=== PATIENT | female | born 1940 | race Caucasian/White ===

== ENCOUNTER 2017-08-02 11:38 | Emergency (ER) | payer MEDICARE, MEDICAID, SELFPAY ==
[2017-08-02 11:40] VITALS: BP 173/79; PULSE 65; RESP 16; TEMP 37; O2SAT 98; BMI 23.0
--- NOTE | 2017-08-02 13:01 | CT_ITS ---
CT head/brain wo con HISTORY: ITS.REASON: DIZZY AND HEADACHE ORDERING PHYSICIAN: Giorgio Cook MD PATIENT AGE: 77 years COMPARISON: None TECHNIQUE: Axial images obtained without contrast. Brain and bone windows reviewed. FINDINGS: No midline shift, mass effect, intracranial hemorrhage, hydrocephalus, or extra-axial fluid collection is evident. The calvarium has an unremarkable appearance. No mastoid effusion. No sinus air-fluid levels.. IMPRESSION: Negative CT head without contrast. No acute finding.
--- NOTE | 2017-08-02 14:35 | HMH.EDHA ---
ED Disposition Clinical Impression: Headache Qualifiers: Headache type: tension-type Headache chronicity pattern: chronic headache Intractability: not intractable Qualified Code(s): G44.229 - Chronic tension-type headache, not intractable Disposition: Home, Self-Care Condition on Discharge: Good Instructions: DI for Chronic Pain -- Adult, DI for Headache Referrals: Yaa Gonzalez [Primary Care Provider] - Time of Disposition: 15:28 - Critical Care Critical Care Time: No Attestation: On 08/02/17, the high probability of a clinically significant, sudden or life threatening deterioration of the following system(s) required my full and direct attention, intervention and personal management. The time I documented below is in addition to time spent performing reported procedures but includes the following listed in this critical care notation. Medical Decision Making - Medical Records Medical records reviewed: Yes: I reviewed the patient's medical records. Vital Signs: 08/02/17 11:40 08/02/17 14:40 08/02/17 15:49 Temperature 98.6 F 98.0 F Temperature Source Oral Oral Pulse Rate 56 L Pulse Rate [Right Brachial] 65 52 L Respiratory Rate 16 12 20 Blood Pressure 163/75 Blood Pressure [Right Arm] 173/79 141/72 Blood Pressure Mean [Right Arm] 110 95 Blood Pressure Source Automatic Cuff Blood Pressure Source [Right Arm] Automatic Cuff Automatic Cuff Blood Pressure Position Sitting Blood Pressure Position [Right Arm] Sitting Sitting 02 Sat by Pulse Oximetry 98 99 Oxygen Delivery Method Room Air Room Air Room Air Orders (Tests/Meds): ED MEDICATIONS Discontinued Medications Generic Name Dose Route Start Last Admin Trade Name Freq PRN Reason Stop Dose Admin Clonidine HCl 0.1 mg 08/02/17 14:36 Clonidine 0.1mg Tablet PO 08/02/17 14:37 ONCE ONE Ketorolac Tromethamine 60 mg 08/02/17 14:35 08/02/17 14:47 Toradol 30mg/Ml Vial IM 08/02/17 14:36 60 mg ONCE ONE Administration Ondansetron HCl 4 mg 08/02/17 14:35 08/02/17 14:46 Zofran 4mg/2ml Vial IM 08/02/17 14:36 4 mg ONCE ONE Administration Trimethoprim/Sulfamethoxazole 1 each 08/02/17 14:36 08/02/17 14:57 Bactrim Ds Tablet PO 08/02/17 14:37 Not Given ONCE ONE Protocol - CT Data CT Scan: Head Time Received: 15:[address] Reviewed: Yes: I have reviewed the patient's CT results Preliminary Findings: Normal/NAD - Ezio Inquiry Pt receiving controlled substance: No - Reevaluation(s) Time: 15:10 Reevaluation #1: Patient appears medically stable, in no acute distress at this time. Appears patient has had off-and-on headaches for a lifetime, however she has never reported such complained to her family physician. Instructed patient to follow-up with her family physician in the 2-3 days, and possibly obtain an MRI of the brain. Headache HPI - General Chief Complaint: Headache Stated Complaint: headache for 5 days and mormon pain Mode of Arrival: Ambulatory Limitations: No Limitations - History of Present Illness MD Complaint: headache Onset (ago): week(s) (1) Onset description: gradual Location: frontal Severity: mild Severity scale (1-10): 2 Quality: aching Relieving factors: rest - Related Data Allergies Allergy/AdvReac Type Severity Reaction Status Date / Time No Known Allergies Allergy Verified 08/02/17 12:14 [facility] History I have reviewed the patient's past medical history: Yes ROS Obtained: Yes All systems reviewed & no additional complaints - Neurologic Neurologic: Reports as per HPI, Reports headache(s) Physical Exam - General General appearance: alert, in no apparent distress - Head Head exam: atraumatic, normocephalic, normal inspection - Eye Eye exam: Present: normal appearance, PERRL, EOMI - ENT ENT exam: Present: normal exam, normal oropharynx, mucous membranes moist, TM's normal bilaterally, normal external ear exam - Neck Neck exam:
[2017-08-02 14:40] VITALS: BP 141/72; PULSE 52; RESP 12; O2SAT 99
[2017-08-02 15:49] VITALS: BP 163/75; PULSE 56; RESP 20; TEMP 36.7; O2SAT 98
== END 2017-08-02 15:51 | disposition home or self-care (01) ==
PROVIDERS: Emergency Provider Emergency Medicine; Family Provider Family Medicine Geriatric Medicine; PCP Family Medicine Geriatric Medicine
DX: G44.229 Chronic tension-type headache, not intractable (principal)
CPT/HCPCS: 70450; 96372; 99281; J2405

== ENCOUNTER 2022-05-14 15:31 | Emergency (ER) | payer MEDICARE, BC, SELFPAY ==
--- NOTE | 2022-05-14 15:47 | EXP.UTC ---
Discharge Plan Disposition Patient Disposition: Home, Self-Care Condition: Good Prescriptions Prescriptions: New cephalexin 500 mg capsule 500 mg PO QID Qty: 40 0RF cefdinir 300 mg capsule 300 mg PO BID 7 Days Qty: 14 0RF Referrals Follow up/Referrals: Provider,Referral, [Primary Care Provider] - See instructions Samara Quintero DPM [Staff Physician] - See instructions Activity Restrictions/Add. Instructions Additional Instructions/Restrictions: Rest the extremity, Elevate the extremity as tolerated while you are resting. Take tylenol for pain. Follow up with Dr. Quintero (podiatry). I put in a referral but you need to call her office and schedule an appointment. Follow up with your regular doctor. GO TO THE ER FOR ANY WORSENING SYMPTOMS Clinical Impressions Clinical Impression: Foot pain, right, Cellulitis of foot, right Instructions Patient Instructions: Cellulitis, DI for Foot Pain Discharge ED Provider: Trevin Mendez [facility] General Stated complaint: right foot pain, no known accident Time Seen by Provider: 05/14/22 15:48 History of Present Illness Provider Complaint: She states that she has had a red painful area on the inside of her right foot for the past 3 days. She denies any known injury. Related Data Previous Rx's Medication Instructions Recorded cefdinir 300 mg capsule 300 mg PO BID 7 days #14 caps 05/14/22 cephalexin 500 mg capsule 500 mg PO QID #40 caps 05/14/22 Allergies Allergy/AdvReac Type Severity Reaction Status Date / Time No Known Allergies Allergy Verified 05/14/22 15:54 [facility] Social History Smoking Status: Never smoker alcohol intake: never current occupational status: retired Travel in the last 8 weeks: None ROS Obtained: Yes All systems reviewed & no additional complaints except as documented Constitutional Constitutional: Denies chills and Denies fever(s) Eyes Eyes: Denies eye discharge ENT Ears, Nose, Mouth, and Throat: Denies dizziness, Denies otalgia and Denies sore throat Cardiovascular Cardiovascular: Denies chest pain Respiratory Respiratory: Denies shortness of breath, Denies chest congestion, Denies cough, Denies stridor and Denies wheezing Gastrointestinal Gastrointestingal: Denies nausea or vomiting Musculoskeletal Musculoskeletal: Reports system reviewed and no additional complaints, except as documented and Denies arthralgias Integumentary/Breasts Skin/Breast: Reports as per HPI Neurologic Neurologic: Denies dizziness and Denies paresthesias Allergic/Immunologic Allergic/Immunologic: Denies wheezing Physical Exam General General appearance: alert and in no apparent distress Head Head exam: atraumatic, normocephalic and normal inspection Eye Eye exam: Present normal appearance, PERRL and EOMI ENT ENT exam: Present normal exam, normal oropharynx, mucous membranes moist, TM's normal bilaterally and normal external ear exam Neck Neck exam: Present normal inspection, full ROM and trachea midline; Absent meningismus or lymphadenopathy Chest Chest inspection: Present normal inspection and symmetric chest wall rise; Absent tenderness Respiratory Respiratory exam: Present normal lung sounds bilaterally; Absent respiratory distress Cardiovascular Cardiovascular exam: Present regular rate and normal rhythm; Absent JVD Abdominal Exam Abdominal exam: Present soft and normal bowel sounds; Absent distention, tenderness or guarding Extremities Exam Extremities exam: Present normal inspection, full ROM and normal capillary refill; Absent calf tenderness Back Exam Back exam: Present normal inspection; Absent tenderness Neurological Exam Neurological exam: Present alert and oriented X3 Psychiatric Psychiatric exam: Present normal affect and normal mood Skin Skin exam: Present other (on the medial aspect of her right foot there is an area of redness that measures 3 cm diameter
[2022-05-14 15:51] VITALS: BP 174/70; PULSE 63; RESP 16; TEMP 36.4; O2SAT 100; BMI 22.1
--- NOTE | 2022-05-14 15:51 | XR_ITS ---
PROCEDURE INFORMATION: Exam: XR Right Foot Exam date and time: 05/14/2022 4:37 PM Age: 82 years old Clinical indication: Pain; Foot; Right TECHNIQUE: Imaging protocol: Radiologic exam of the Right foot. Views: 3 or more views. COMPARISON: CR XR ANKLE RT MIN 3V 05/14/2022 4:33 PM FINDINGS: Bones/joints: Osteopenia. Soft tissues: Normal. IMPRESSION: No evidence of acute osseous injury.
--- NOTE | 2022-05-14 15:51 | XR_ITS ---
PROCEDURE INFORMATION: Exam: XR Right Ankle Exam date and time: 05/14/2022 4:33 PM Age: 82 years old Clinical indication: Pain; Ankle; Right TECHNIQUE: Imaging protocol: Radiologic exam of the Right ankle. Views: 3 or more views. COMPARISON: No relevant prior studies available. FINDINGS: Bones/joints: Osteopenia. Mild soft tissue swelling medial aspect of the ankle joint. Focal fragments adjacent to the medial malleolus. Clinically correlate to exclude acute injury to this region. Soft tissues: See Bones/joints finding. IMPRESSION: 1. Soft tissue swelling medial aspect of the ankle joint. 2. Focal fragments adjacent to the medial malleolus. Clinically correlate to exclude acute tendinous or ligamentous injury with possible avulsion in this region.
[2022-05-14 17:06] VITALS: BP 174/70; PULSE 63; RESP 16; TEMP 36.4
== END 2022-05-14 17:18 | disposition home or self-care (01) ==
PROVIDERS: Emergency Provider Nurse Practitioner Family
DX: L03.115 Cellulitis of right lower limb (principal)
CPT/HCPCS: 73610; 73630; 99212; G0463

== ENCOUNTER 2022-08-08 10:45 | Emergency (ER) | payer MEDICARE, BC, SELFPAY ==
--- NOTE | 2022-08-08 11:43 | EXP.UTC ---
Discharge Plan Disposition Patient Disposition: Home, Self-Care Condition: Good Prescriptions Prescriptions: New azithromycin [Zithromax] 250 mg tablet 250 mg PO UD DOSE PK Qty: 6 0RF Rx Instructions: Take two (2) tablets today, then one (1) tablet days #2 thru #5 benzonatate [benzonatate] 100 mg capsule 100 mg PO TIDP PRN (Reason: Cough) Qty: 30 0RF methylprednisolone 4 mg Tablets,Dose Pack 4 mg PO DIRECTED Qty: 21 0RF guaifenesin [Mucinex] 600 mg tablet extended release 12hr 600 - 1,200 mg PO BIDP PRN (Reason: Congestion) Qty: 30 0RF Referrals Follow up/Referrals: Alana Marquez MD [Primary Care Provider] - See instructions Activity Restrictions/Add. Instructions Additional Instructions/Restrictions: Drink plenty of fluids. Take tylenol or ibuprofen for pain or fever. Take the medications as directed. Follow up with your regular doctor. GO TO THE ER FOR ANY WORSENING SYMPTOMS Clinical Impressions Clinical Impression: Sinusitis Instructions Patient Instructions: Sinusitis, DI for Sinusitis Discharge ED Provider: Trevin Mendez [facility] General Stated complaint: Congestion Time Seen by Provider: 08/08/22 11:43 History of Present Illness Provider Complaint: she states that for the past 2 weeks she has had sinus congestion and sinus pressure. Related Data Previous Rx's Medication Instructions Recorded azithromycin 250 mg tablet 250 mg PO UD DOSE PK #6 tabs 08/08/22 (Zithromax) benzonatate 100 mg capsule 100 mg PO TIDP PRN Cough #30 caps 08/08/22 guaifenesin 600 mg tablet, 600 - 1,200 mg PO BIDP PRN 08/08/22 extended release 12 hr (Mucinex) Congestion #30 tabs methylprednisolone 4 mg tablets in 4 mg PO DIRECTED #21 tabs 08/08/22 a dose pack Allergies Allergy/AdvReac Type Severity Reaction Status Date / Time No Known Allergies Allergy Verified 08/08/22 12:00 [facility] Disclaimer: The information contained in this section may have been updated after the patient was seen, as this information can be updated by other users. Social History Smoking Status: Never smoker alcohol intake: never current occupational status: retired Travel in the last 8 weeks: None ROS Obtained: Yes All systems reviewed & no additional complaints except as documented Constitutional Constitutional: Reports poor appetite Eyes Eyes: Reports system reviewed and no additional complaints, except as documented ENT Ears, Nose, Mouth, and Throat: Reports as per HPI Cardiovascular Cardiovascular: Reports system reviewed and no additional complaints, except as documented and Denies chest pain Respiratory Respiratory: Denies shortness of breath, Denies chest congestion, Reports cough, Denies stridor and Denies wheezing Gastrointestinal Gastrointestingal: Reports system reviewed and no additional complaints, except as documented; Denies abdominal pain, diarrhea or vomiting Musculoskeletal Musculoskeletal: Reports system reviewed and no additional complaints, except as documented and Denies arthralgias Integumentary/Breasts Skin/Breast: Reports system reviewed and no additional complaints, except as documented and Denies rash Neurologic Neurologic: Denies paresthesias Allergic/Immunologic Allergic/Immunologic: Denies wheezing Physical Exam General General appearance: alert and in no apparent distress Eye Eye exam: Present normal appearance, PERRL and EOMI ENT ENT exam: Present mucous membranes moist and normal external ear exam Expanded ENT Exam External ear exam: Present normal external inspection TM/Canal exam: Bilateral TM: erythema and bulging Nose exam: Absent sinus tenderness Nasal speculum exam: Bilateral: normal Mouth exam: Present normal external inspection; Absent drooling Teeth exam: Present normal inspection Throat exam: Present tonsillar erythema and tonsillomegaly Neck Neck exam: Present normal
[2022-08-08 11:45] VITALS: BP 174/77; PULSE 71; RESP 20; TEMP 36.4; O2SAT 99; BMI 21.5
[2022-08-08 12:24] VITALS: BP 174/77; PULSE 71; RESP 20; TEMP 36.4; O2SAT 99
== END 2022-08-08 12:15 | disposition home or self-care (01) ==
PROVIDERS: Emergency Provider Nurse Practitioner Family; PCP Internal Medicine
DX: J32.9 Chronic sinusitis, unspecified (principal)
CPT/HCPCS: 99212; 99213; G0463

== ENCOUNTER 2022-08-22 10:12 | Emergency (ER) | payer MEDICARE, BC, SELFPAY ==
[2022-08-22 10:40] VITALS: PULSE 77; RESP 20; TEMP 36.9; O2SAT 98; BMI 21.6
--- NOTE | 2022-08-22 11:01 | EXP.UTC ---
Discharge Plan Disposition Patient Disposition: Home, Self-Care Condition: Good Prescriptions Prescriptions: New doxycycline hyclate 100 mg capsule 100 mg PO BID Qty: 20 0RF fluticasone propionate [Flonase Allergy Relief] 50 mcg/actuation spray,suspension 1 spray intranasal DAILY Qty: 16 0RF Rx Instructions: administer into each nostril daily No Action losartan 50 mg tablet 50 mg PO DAILY Label Comments: TAKE 1 TABLET BY MOUTH ONCE DAILY gabapentin 600 mg tablet 600 mg PO TID atorvastatin 20 mg tablet 20 mg PO DAILY metoprolol succinate 100 mg tablet extended release 24 hr 100 mg PO DAILY potassium chloride 10 mEq tablet extended release 10 meq PO DAILY levothyroxine 75 mcg tablet 75 mcg PO DAILY amlodipine 10 mg tablet 10 mg PO DAILY omeprazole 20 mg capsule,delayed release(DR/EC) 20 mg PO DAILY Referrals Follow up/Referrals: Alana Marquez MD [Primary Care Provider] - See instructions Activity Restrictions/Add. Instructions Additional Instructions/Restrictions: *Monitor Temp, Over the counter Motrin or Tylenol as directed/as needed Tylenol every 4 hours and Motrin every 6 hours (as long as your family doctor has told you that you can take it) for fever or pain. and straight to ER if unable to lower temp less than 101.0 after medication given *Warm salt water gargles may help to soothe the throat *Throat Lozenges? *Warm fluids like tea with honey may help to soothe the throat? *Sleep elevated *Humidifier/Vaporizer *Flonase 2 sprays in each nostril daily but be aware that it may take 2-3 days before you notice improvement Follow up IMMEDIATELY for new or worsening symptoms or no Noticeable improvement over the next 48-72 hours. 911 for difficulty breathing or swallowing Clinical Impressions Clinical Impression: Sinusitis Instructions Patient Instructions: Sinusitis, DI for Sinusitis, Doxycycline Discharge ED Provider: Althea Malhotra [facility] HPI General Stated complaint: head congestion,chills,headache Mode of Arrival: Ambulatory Source of Information: Patient Limitations: No Limitations Time Seen by Provider: 08/22/22 11:01 Description of Symptoms (Recalled from Triage Doc. by RN): sinus infection HEENT Symptoms (Recalled from RN notes): Yes Resp Symptoms (Recalled from RN notes): No Skin Symptoms (Recalled from RN notes): No MS Symptoms (Recalled from RN notes): No Functional Status (Recalled from RN notes): n/a History of Present Illness Provider Complaint: Patient states that she has had a sinus infection for several weeks States that she was seen and given a zpack but it hasnt helped States that she has still been having sinus pain and pressure, pressure in her teeth and behind her eyes States that at times will break loose and start running then stop back up States that today when she was still having the sinus pressure she came back in again to get checked to see if she needed to get something else Related Data Home Medications Medication Instructions Recorded Confirmed amlodipine 10 mg tablet 10 mg PO DAILY . 08/22/22 08/22/22 atorvastatin 20 mg tablet 20 mg PO DAILY . 08/22/22 08/22/22 gabapentin 600 mg tablet 600 mg PO TID . 08/22/22 08/22/22 levothyroxine 75 mcg tablet 75 mcg PO DAILY . 08/22/22 08/22/22 losartan 50 mg tablet 50 mg PO DAILY . 08/22/22 08/22/22 metoprolol succinate 100 mg 100 mg PO DAILY . 08/22/22 08/22/22 tablet,extended release 24 hr omeprazole 20 mg capsule,delayed 20 mg PO DAILY , 08/22/22 08/22/22 release potassium chloride 10 mEq 10 meq PO DAILY . 08/22/22 08/22/22 tablet,extended release Previous Rx's Medication Instructions Recorded doxycycline hyclate 100 mg capsule 100 mg PO BID #20 caps 08/22/22 fluticasone propionate 50 1 spray intranasal DAILY #16 grams 08/22/22 mcg/actuation nasal spray,suspension (Flonase Allergy Relief) Aller
[2022-08-22 11:18] VITALS: BP 173/83; PULSE 77; RESP 20; TEMP 36.9; O2SAT 98
== END 2022-08-22 11:18 | disposition home or self-care (01) ==
PROVIDERS: Emergency Provider Nurse Practitioner; PCP Internal Medicine
DX: J32.9 Chronic sinusitis, unspecified (principal)
CPT/HCPCS: 99212; 99213; G0463

== ENCOUNTER 2023-09-18 19:09 | Emergency (ER) | payer MEDICARE, BC, SELFPAY ==
[2023-09-18 19:25] VITALS: BP 157/79; PULSE 63; RESP 18; TEMP 36.9; O2SAT 96; BMI 22.7
--- NOTE | 2023-09-18 19:26 | ED_ITS ---
Discharge Plan Disposition Patient Disposition: Home, Self-Care Condition: Good Prescriptions Prescriptions: New prednisone 10 mg tablet 10 mg PO DIRECTED 9 Days Qty: 21 0RF Rx Instructions: Take 4 tablets daily for 3 days, then take 2 tablets daily for 3 days, then take 1 tablet daily for 3 days, then stop. guaifenesin [Mucinex] 600 mg tablet extended release 12hr 600 - 1,200 mg PO BIDP PRN (Reason: Congestion) Qty: 30 0RF benzonatate 100 mg capsule 100 mg PO TIDP PRN (Reason: Cough) Qty: 30 0RF amoxicillin 875 mg tablet 875 mg PO Q12H Qty: 20 0RF No Action losartan 50 mg tablet 50 mg PO DAILY Patient Comments: TAKE 1 TABLET BY MOUTH ONCE DAILY gabapentin 600 mg tablet 600 mg PO TID atorvastatin 20 mg tablet 20 mg PO DAILY metoprolol succinate 100 mg tablet extended release 24 hr 100 mg PO DAILY potassium chloride 10 mEq tablet extended release 10 meq PO DAILY levothyroxine 75 mcg tablet 75 mcg PO DAILY amlodipine 10 mg tablet 10 mg PO DAILY omeprazole 20 mg capsule,delayed release(DR/EC) 20 mg PO DAILY fluticasone propionate [Flonase Allergy Relief] 50 mcg/actuation spray,suspension 1 spray intranasal DAILY Qty: 16 0RF Rx Instructions: administer into each nostril daily alendronate 70 mg tablet See Rx Instructions .ROUTE .COMPLEX Patient Comments: TAKE 1 TABLET BY MOUTH ONCE A WEEK Rx Instructions: TAKE 1 TABLET BY MOUTH ONCE A WEEK albuterol sulfate 90 mcg/actuation HFA aerosol inhaler See Rx Instructions .ROUTE .COMPLEX Patient Comments: INHALE 2 PUFFS BY MOUTH EVERY 4 HOURS Rx Instructions: INHALE 2 PUFFS BY MOUTH EVERY 4 HOURS Linzess 72 mcg capsule 72 mcg PO DAILY Referrals Follow up/Referrals: Wing Woods MD [Physician] - See instructions Alana Marquez MD [Primary Care Provider] - See instructions Activity Restrictions/Add. Instructions Additional Instructions/Restrictions: Drink plenty of fluids. Take tylenol or ibuprofen for pain or fever. Take the medications as directed. Follow up with your regular doctor. Follow up with ENT as referred. GO TO THE ER FOR ANY WORSENING SYMPTOMS Clinical Impressions Clinical Impression: Sinusitis Qualifiers: Sinusitis location: unspecified location Chronicity: unspecified Qualified Code(s): J32.9 - Chronic sinusitis, unspecified Instructions Patient Instructions: Sinusitis, DI for Sinusitis Discharge ED Provider: Trevin Mendez [facility] [place] General Stated complaint: eye feels hot, poss sinus inf, sore throat,chills Time Seen by Provider: 09/18/23 19:45 History of Present Illness Provider Complaint: She states that for the past 1 month she has had sinus congestion that is getting worse. She has a history of chronic sinusitis. She request a referral to an ENT doctor. Related Data Home Medications Medication Instructions Recorded Confirmed amlodipine 10 mg tablet 10 mg PO DAILY . 08/22/22 09/18/23 atorvastatin 20 mg tablet 20 mg PO DAILY . 08/22/22 09/18/23 gabapentin 600 mg tablet 600 mg PO TID . 08/22/22 09/18/23 levothyroxine 75 mcg tablet 75 mcg PO DAILY . 08/22/22 09/18/23 losartan 50 mg tablet 50 mg PO DAILY . 08/22/22 09/18/23 metoprolol succinate 100 mg 100 mg PO DAILY . 08/22/22 09/18/23 tablet,extended release 24 hr omeprazole 20 mg capsule,delayed 20 mg PO DAILY , 08/22/22 09/18/23 release potassium chloride 10 mEq 10 meq PO DAILY . 08/22/22 09/18/23 tablet,extended release albuterol sulfate 90 mcg/actuation See Rx Instructions .Route .COMPLEX 09/18/23 09/18/23 aerosol inhaler alendronate 70 mg tablet See Rx Instructions .Route .COMPLEX 09/18/23 09/18/23 linaclotide 72 mcg capsule 72 mcg PO DAILY 09/18/23 09/18/23 (Linzess) Previous Rx's Medication Instructions Recorded fluticasone propionate 50 1 spray intranasal DAILY #16 grams 08/22/22 mcg/actuation nasal spray,suspension (Flonase Allergy Relief) amoxicillin 875 mg tablet 875 mg PO Q12H #20 tabs 09/18/23 benzonatate 100 mg capsule 100 mg PO TIDP PRN Cough #30 caps 09/18/23 guaifenesin 600 mg tablet, 600 - 1,200 mg (1 - 2 x 600 mg) PO 09/18/23 extended release 12 hr (Mucinex) BIDP PRN Congestion #30 tabs prednisone 10 mg tablet 10 mg PO DIRECTED 9 days #21 09/18/23 tabs Allergies Allergy/AdvReac Type Severity Reaction Status Date / Time No Known Allergies Allergy Verified 09/18/23 19:33 [facility] Disclaimer: The information contained in this section may have been updated after the patient was seen, as this information can be updated by other users. Social History Smoking Status: Never smoker alcohol intake: never current occupational status: retired Travel in the last 8 weeks: None ROS Obtained: Yes All systems reviewed & no additional complaints except as documented Constitutional Constitutional: Reports poor appetite Eyes Eyes: Reports system reviewed and no additional complaints, except as documented ENT Ears, Nose, Mouth, and Throat: Reports as per HPI Cardiovascular Cardiovascular: Reports system reviewed and no additional complaints, except as documented and Denies chest pain Respiratory Respiratory: Denies shortness of breath, Denies chest congestion, Reports cough, Denies stridor and Denies wheezing Gastrointestinal Gastrointestingal: Reports system reviewed and no additional complaints, except as documented; Denies abdominal pain, diarrhea or vomiting Musculoskeletal Musculoskeletal: Reports system reviewed and no additional complaints, except as documented and Denies arthralgias Integumentary/Breasts Skin/Breast: Reports system reviewed and no additional complaints, except as documented and Denies rash Neurologic Neurologic: Denies paresthesias Allergic/Immunologic Allergic/Immunologic: Denies wheezing Physical Exam General General appearance: alert and in no apparent distress Eye Eye exam: Present normal appearance, PERRL and EOMI ENT ENT exam: Present mucous membranes moist and normal external ear exam Expanded ENT Exam External ear exam: Present normal external inspection TM/Canal exam: Bilateral TM: erythema and bulging Nose exam: Absent sinus tenderness Nasal speculum exam: Bilateral: normal Mouth exam: Present normal external inspection; Absent drooling Teeth exam: Present normal inspection Throat exam: Present tonsillar erythema and tonsillomegaly Neck Neck exam: Present normal inspection, full ROM and trachea midline; Absent tenderness, lymphadenopathy or thyromegaly Chest Chest inspection: Present normal inspection and symmetric chest wall rise; Absent tenderness or rash Respiratory Respiratory exam: Present normal lung sounds bilaterally; Absent respiratory distress, wheezes, stridor or accessory muscle use Cardiovascular Cardiovascular exam: Present regular rate, normal rhythm and normal heart sounds Abdominal Exam Abdominal exam: Present soft; Absent distention, tenderness, guarding, rebound or rigidity Extremities Exam Extremities exam: Present normal inspection, full ROM and normal capillary refill; Absent tenderness or calf tenderness Back Exam Back exam: Present normal inspection and full ROM; Absent tenderness Neurological Exam Neurological exam: Present alert and oriented X3 Psychiatric Psychiatric exam: Present normal affect and normal mood Skin Skin exam: Present warm, dry, intact and normal color Lymphatic Lymphatic Findings: no adenopathy Medical Decision Making Medical Records Medical records reviewed: No I reviewed the patient's medical records. Ezio Inquiry Pt receiving controlled substance: No Lab Data Lab results reviewed: Yes I reviewed the patient's lab results.
[2023-09-18 20:06] VITALS: BP 157/79; PULSE 63; RESP 18; TEMP 36.9; O2SAT 96
== END 2023-09-18 19:50 | disposition home or self-care (01) ==
PROVIDERS: Emergency Provider Nurse Practitioner Family; PCP Internal Medicine
DX: J01.90 Acute sinusitis, unspecified (principal); R05.9 Cough, unspecified; R09.81 Nasal congestion
CPT/HCPCS: 99212; 99214; G0463